=== PATIENT | female | born 1950 | race African-American/Black ===

== ENCOUNTER 2017-11-16 11:58 | Emergency (ER) | payer MEDICARE, MEDICAID ==
[~2017-11-16] VITALS: Ht 162.6 cm; Wt 86.0 kg
[2017-11-16 14:17] LABS: CHLORIDE 104 mEq/L (98-107)
[2017-11-16 14:39] VITALS: BP 104/59
== END 2017-11-16 15:25 | disposition home or self-care (01) ==
LOC: ER 15:11
DX: R25.2 Cramp and spasm (principal); M79.652 Pain in left thigh; I10 Essential (primary) hypertension; E78.00 Pure hypercholesterolemia, unspecified; E11.9 Type 2 diabetes mellitus without complications; Z87.891 Personal history of nicotine dependence; Z87.442 Personal history of urinary calculi
CPT/HCPCS: 36415; 80048; 93971; 99285

== ENCOUNTER 2024-09-23 08:41 | Emergency (ER) | payer OTHER, MEDICAID, MEDICARE ==
[~2024-09-23] VITALS: Ht 167.6 cm; Wt 62.0 kg
[~2024-09-23 08:41] MED LIST: ALLO300T2 MT; AMLO5TAB88 MT; ATOR40TA70 MT; CLOP75TA33 MT; EZET10TA81 PO; GABA-1180 MT; LABE200T9 PO; LEVO-65 MT; METF-414 PO; OLME40TA18 PO; SPIR25TA6 MT
[2024-09-23 08:47] VITALS: O2SAT 98
[2024-09-23] MEDS: KETOROLAC 30MG/ML VIAL IM STA (09:16)
[2024-09-23 09:17] LABS: BASOPHILS % 0.4 % (0.0-2.0); EOSINOPHILS % 1.5 % (0.0-5.0); HEMATOCRIT. 46.5 % (36.0-48.0); HEMOGLOBIN. 15.2 g/dL (12.0-16.0); MEAN CORPUSCULAR HEMOGLOBIN 29.8 pg (28.0-32.0); MEAN CORPUSCULAR HGB CONC 32.8 g/dL (31.0-37.0); MEAN CORPUSCULAR VOLUME 90.9 fL (81.0-99.0); MEAN PLATELET VOLUME 8.7 fl (7.4-10.4); MONOCYTES % 6.8 % (2.0-8.0); NEUTROPHILS % 78.3 % (40.0-76.0); PLATELET 171 x1000/uL (130-400); RED BLOOD CELL COUNT 5.12 mill/uL (4.2-5.4); RED CELL DISTRIBUTION WIDTH 13.5 % (11.6-14.6); WHITE BLOOD COUNT 8.3 x1000/uL (4.5-11.0)
[2024-09-23 09:24] LABS: POTASSIUM 3.6 mEq/L (3.5-5.1)
[2024-09-23 09:26] LABS: CALCIUM 9.4 mg/dL (8.7-10.4)
[2024-09-23 09:30] LABS: CREATININE 1.1 mg/dL (0.6-1.0)
[2024-09-23] MEDS: OXYCODONE HCL/ACETAMINOPHEN 5/325MG TABLET PO ONE (09:46)
[2024-09-23 10:02] LABS: ALANINE AMINOTRANSFERASE 14 IU/L (10-49); ALBUMIN 4.2 g/dL (3.2-4.8); ASPARTATE AMINOTRANSFERASE 24 IU/L (<34); BILIRUBIN DIRECT 0.2 mg/dL (<=3.0); BILIRUBIN TOTAL 1.2 mg/dL (0.1-1.0); PROTEIN TOTAL 7.4 g/dL (6.0-8.3)
[2024-09-23 11:21] LABS: CLARITY URINE TURBID (CLEAR); COLOR URINE YELLOW (YELLOW); GLUCOSE URINE NEGATIVE (NEGATIVE); KETONES URINE NEGATIVE (NEGATIVE); LEUKOCYTE ESTERASE URINE 2+ (NEGATIVE); NITRITE URINE NEGATIVE (NEGATIVE); OCCULT BLOOD URINE 3+ (NEGATIVE); PH URINE 6.5 (4.5-8.0); PROTEIN URINE 1+ (NEGATIVE); SPECIFIC GRAVITY URINE 1.019 (1.005-1.030); UROBILINOGEN URINE 0.2 E.U./dL (0.2-1.0)
[2024-09-23 11:35] LABS: RBC URINE 50-100 /hpf (0-2)
[2024-09-23 11:37] LABS: BACTERIA URINE 2+; SQUAMOUS EPITHELIAL CELL URINE 3+ /lpf (RARE/1+); YEAST URINE NONE SEEN
[2024-09-23] MEDS ORDERED: ONDA-239 PO (13:05)
[2024-09-23] MEDS ORDERED: HYDR-4001 MT (13:05)
[2024-09-23 13:21] VITALS: BP 189/91; PULSE 56; RESP 15; TEMP 36.9; O2SAT 97
[2024-09-23] MEDS ORDERED: IOHEXOL-350 100 ML BOTTLE ONE (15:02)
== END 2024-09-23 13:22 | disposition home or self-care (01) ==
LOC: ER 08:41
DX: N20.1 Calculus of ureter (principal); E11.9 Type 2 diabetes mellitus without complications; E78.00 Pure hypercholesterolemia, unspecified; I10 Essential (primary) hypertension; Z79.02 Long term (current) use of antithrombotics/antiplatelets; Z79.899 Other long term (current) drug therapy; Z86.73 Personal history of transient ischemic attack (TIA), and cerebral infarction without residual deficits; Z87.442 Personal history of urinary calculi
CPT/HCPCS: 99285; 74177; 80076; 80048; 81003; 83690; 85025; 36415; 96372; J1885; Q9967